=== PATIENT | male | born 1940 | race Caucasian/White ===

== ENCOUNTER 2018-08-29 18:27 | Emergency (ER) | payer MEDICARE, OTHER ==
[2018-08-29 22:10] LABS: ADD MAN DIFF? NO
[2018-08-29 22:13] LABS: WHITE BLOOD COUNT 12.3 10^3/ul (4.8-10.8)
[2018-08-29 22:13] LABS: ABNORMAL IP MESSAGE 1; BASOPHILS % 0.2 % (0.0-2.0); HEMATOCRIT 47.7 % (42.0-52.0); HEMOGLOBIN 15.8 g/dl (14.0-18.0); LYMPHOCYTES # 0.4 10^3/ul (0.8-2.9); LYMPHOCYTES % 3.3 % (15.0-51.0); MEAN CORPUSCULAR HEMOGLOBIN 31.6 pg (29.0-33.0); MEAN CORPUSCULAR HGB CONC 33.1 g/dl (32.0-37.0); MEAN CORPUSCULAR VOLUME 95.4 fl (82.0-101.0); MEAN PLATELET VOLUME 11.5 fl (7.4-10.4); MONOCYTE # 0.8 10^3/ul (0.3-0.9); MONOCYTES % 6.2 % (0.0-11.0); NEUTROPHILS % 89.9 % (39.0-77.0); PLATELET COUNT 163 10^3/UL (140-415); POSITIVE DIFF @See below; RED CELL DISTRIBUTION WIDTH 14.4 % (11.5-14.5)
[2018-08-29 22:23] LABS: ADD UMIC YES; UR ASCORBIC ACID NEGATIVE (NEGATIVE); UR BACTERIA FEW /HPF (NONE SEEN); UR BILIRUBIN (Dip) NEGATIVE (NEGATIVE); UR BLOOD (Dip) 3+ mg/dL (NEGATIVE); UR CLARITY CLEAR (CLEAR); UR COLOR RED (YELLOW); UR GLUCOSE (Dip) NEGATIVE (NEGATIVE); UR KETONES (Dip) NEGATIVE (NEGATIVE); UR LEUKOCYTE ESTERASE (Dip) NEGATIVE Leu/ul (NEGATIVE); UR NITRITE (Dip) NEGATIVE (NEGATIVE); UR RBC > 182 /HPF (0-5); UR SPECIFIC GRAVITY (Dip) 1.004 (1.003-1.030); UR TOTAL PROTEIN (Dip) 2+ mg/dl (NEGATIVE); UR UROBILINOGEN (Dip) NEGATIVE (NEGATIVE); UR WBC 50 /HPF (0-5)
[2018-08-29 22:32] LABS: INR 0.93; PROTIME 12.5 Sec (11.9-14.9)
[2018-08-29 22:33] LABS: PARTIAL THROMBOPLASTIN TIME 30.8 Sec (23.0-35.0)
[2018-08-29] MEDS: CEFTRIAXONE 1 GM/50 ML (PMX) 50 ML IVPB (22:38)
[2018-08-29 22:45] LABS: ALANINE AMINOTRANSFERASE 32 IU/L (13-69); ALBUMIN/GLOBULIN RATIO 1.66; ALKALINE PHOSPHATASE 67 IU/L (42-121); ANION GAP 11 (5-13); ASPARTATE AMINO TRANSFERASE 32 IU/L (15-46); BILIRUBIN,INDIRECT 0.7 mg/dl (0-1.1); BILIRUBIN,TOTAL 0.7 mg/dl (0.2-1.3); BLOOD UREA NITROGEN 19 mg/dl (7-20); CALCIUM 9.8 mg/dl (8.4-10.2); CARBON DIOXIDE 32 mmol/L (21-31); CHLORIDE 94 mmol/L (97-110); CREATININE 0.77 mg/dl (0.61-1.24); GLUCOSE 169 mg/dl (70-220); LIPASE 96 U/L (23-300); POTASSIUM 4.1 mmol/L (3.5-5.1); SODIUM 137 mmol/L (135-144)
== END 2018-08-30 00:02 | disposition home or self-care (01) ==
LOC: E/R 08-30 00:02
DX: N30.90 Cystitis, unspecified without hematuria (principal); N40.1 Benign prostatic hyperplasia with lower urinary tract symptoms; E11.9 Type 2 diabetes mellitus without complications; E03.9 Hypothyroidism, unspecified; R10.9 Unspecified abdominal pain; Z79.84 Long term (current) use of oral hypoglycemic drugs
CPT/HCPCS: 36415; 71045; 80053; 81001; 83690; 85025; 85610; 85730; 87086; 96374; 99284-25

== ENCOUNTER 2018-09-25 23:42 | Emergency (ER) | payer MEDICARE, OTHER ==
[2018-09-26 02:29] LABS: ADD UMIC YES; UR ASCORBIC ACID NEGATIVE (NEGATIVE); UR BACTERIA FEW /HPF (NONE SEEN); UR BILIRUBIN (Dip) NEGATIVE (NEGATIVE); UR BLOOD (Dip) 3+ mg/dL (NEGATIVE); UR CLARITY SLIGHTLY CLOUDY (CLEAR); UR COLOR AMBER (YELLOW); UR GLUCOSE (Dip) NEGATIVE (NEGATIVE); UR KETONES (Dip) NEGATIVE (NEGATIVE); UR LEUKOCYTE ESTERASE (Dip) 3+ Leu/ul (NEGATIVE); UR MUCUS FEW /HPF (NONE SEEN); UR NITRITE (Dip) NEGATIVE (NEGATIVE); UR RBC 21 /HPF (0-5); UR SPECIFIC GRAVITY (Dip) 1.003 (1.003-1.030); UR TOTAL PROTEIN (Dip) 1+ mg/dl (NEGATIVE); UR UROBILINOGEN (Dip) NEGATIVE (NEGATIVE); UR WBC 20 /HPF (0-5)
== END 2018-09-26 04:29 | disposition home or self-care (01) ==
LOC: E/R 23:42
DX: T85.9XXA Unspecified complication of internal prosthetic device, implant and graft, initial encounter (principal); E03.9 Hypothyroidism, unspecified; E11.9 Type 2 diabetes mellitus without complications; Y73.2 Prosthetic and other implants, materials and accessory gastroenterology and urology devices associated with adverse incidents; Z79.84 Long term (current) use of oral hypoglycemic drugs
CPT/HCPCS: 81001; 87086; 99283

== ENCOUNTER 2018-09-27 15:52 | Inpatient (IN) | payer MEDICARE, OTHER ==
[2018-09-27 16:07] LABS: ADD MAN DIFF? NO
[2018-09-27 16:10] LABS: BASOPHILS % 0.2 % (0.0-2.0); EOSINOPHILS % 0.1 % (0.0-7.0); HEMATOCRIT 32.1 % (42.0-52.0); HEMOGLOBIN 11.2 g/dl (14.0-18.0); LYMPHOCYTES # 0.8 10^3/ul (0.8-2.9); LYMPHOCYTES % 6.1 % (15.0-51.0); MEAN CORPUSCULAR HEMOGLOBIN 31.9 pg (29.0-33.0); MEAN CORPUSCULAR HGB CONC 34.9 g/dl (32.0-37.0); MEAN CORPUSCULAR VOLUME 91.5 fl (82.0-101.0); MEAN PLATELET VOLUME 11.5 fl (7.4-10.4); MONOCYTE # 1.3 10^3/ul (0.3-0.9); MONOCYTES % 10.7 % (0.0-11.0); NEUTROPHIL # 10.1 10^3/ul (1.6-7.5); NEUTROPHILS % 82.2 % (39.0-77.0); PLATELET COUNT 178 10^3/UL (140-415); RED BLOOD COUNT 3.51 10^6/ul (4.70-6.10); RED CELL DISTRIBUTION WIDTH 13.3 % (11.5-14.5)
[2018-09-27 16:10] LABS: WHITE BLOOD COUNT 12.3 10^3/ul (4.8-10.8)
[2018-09-27] MEDS: FUROSEMIDE 40 MG INJ IV (16:11)
[2018-09-27] MEDS: ASPIRIN 81 MG TAB PO (16:11)
[2018-09-27] MEDS: DILTIAZEM 25 MG INJ IV (16:11)
[2018-09-27 16:28] LABS: ALANINE AMINOTRANSFERASE 38 IU/L (13-69); ALBUMIN 3.7 g/dl (3.3-4.9); ALBUMIN/GLOBULIN RATIO 1.27; ALKALINE PHOSPHATASE 68 IU/L (42-121); ANION GAP 13 (5-13); ASPARTATE AMINO TRANSFERASE 51 IU/L (15-46); BILIRUBIN,INDIRECT 0.9 mg/dl (0-1.1); BILIRUBIN,TOTAL 0.9 mg/dl (0.2-1.3); BLOOD UREA NITROGEN 15 mg/dl (7-20); CALCIUM 8.3 mg/dl (8.4-10.2); CARBON DIOXIDE 25 mmol/L (21-31); CHLORIDE 83 mmol/L (97-110); CREATININE 0.75 mg/dl (0.61-1.24); GLUCOSE 137 mg/dl (70-220); LIPASE 46 U/L (23-300); POTASSIUM 4.2 mmol/L (3.5-5.1); SODIUM 121 mmol/L (135-144); TOTAL PROTEIN 6.6 g/dl (6.1-8.1)
[2018-09-27 16:39] LABS: TROPONIN-I 0.069 ng/ml (0.000-0.120)
[2018-09-27 16:52] LABS: ADD UMIC YES; UR ASCORBIC ACID NEGATIVE (NEGATIVE); UR BACTERIA FEW /HPF (NONE SEEN); UR BILIRUBIN (Dip) NEGATIVE (NEGATIVE); UR BLOOD (Dip) 3+ mg/dL (NEGATIVE); UR CLARITY CLEAR (CLEAR); UR COLOR STRAW (YELLOW); UR GLUCOSE (Dip) NEGATIVE (NEGATIVE); UR KETONES (Dip) NEGATIVE (NEGATIVE); UR LEUKOCYTE ESTERASE (Dip) 1+ Leu/ul (NEGATIVE); UR NITRITE (Dip) NEGATIVE (NEGATIVE); UR RBC 0 /HPF (0-5); UR SPECIFIC GRAVITY (Dip) 1.001 (1.003-1.030); UR TOTAL PROTEIN (Dip) NEGATIVE (NEGATIVE); UR UROBILINOGEN (Dip) NEGATIVE (NEGATIVE); UR WBC 1 /HPF (0-5)
[2018-09-27 17:35] LABS: B-TYPE NATRIURETIC PEPTIDE 5160 PG/ML (0-450)
[2018-09-27] MEDS ORDERED: HYDROCODONE/APAP (5/325) TAB PO (18:00)
[2018-09-27] MEDS ORDERED: LEVALBUTEROL (NEB) 1.25 MG/0.5 ML AMP HHN ×2 (18:00→20:00)
[2018-09-27] MEDS ORDERED: LABETALOL HCL 20MG INJ IV (18:00)
[2018-09-27] MEDS ORDERED: NACL 0.9% 3 ML SYG IV (18:00)
[2018-09-27] MEDS ORDERED: ACETAMINOPHEN 325 MG TAB PO (18:00)
[2018-09-27] MEDS ORDERED: IPRATROPIUM (NEB) 0.5 MG/2.5 ML AMP HHN (18:00)
[2018-09-27 18:32] LABS: POTASSIUM,URINE RANDOM < 9.7 mmol/L (25-125)
[2018-09-27 18:32] LABS: SODIUM,URINE RANDOM < 13 mmol/L (30-90)
[2018-09-27] MEDS ORDERED: DEXTROSE 50% 50 ML SYRINGE IV ×2 (19:00)
[2018-09-27] MEDS ORDERED: GLUCOSE GEL 15 GRAM TUBE BUCCAL (19:00)
[2018-09-27] MEDS ORDERED: GLUCOSE GEL 15 GRAM TUBE PO ×2 (19:00)
[2018-09-27] MEDS ORDERED: GLUCAGON 1 MG INJ IM (19:00)
[2018-09-27] MEDS: SOD CHLORIDE 0.9% 1,000 ML IV (19:05)
[2018-09-27] MEDS: CEFTRIAXONE 1 GM/50 ML (PMX) 50 ML IVPB (19:05)
[2018-09-27] MEDS ORDERED: DILTIAZEM 25 MG INJ IV (20:00)
[2018-09-27 20:07] LABS: OSMOLALITY,URINE 77 mOsm/kg (250-1200)
[2018-09-27 20:14] LABS: CARBON DIOXIDE 27 mmol/L (21-31); CHLORIDE 85 mmol/L (97-110); POTASSIUM 3.6 mmol/L (3.5-5.1); SODIUM 123 mmol/L (135-144)
[2018-09-27 20:14] LABS: LACTIC ACID 1.4 mmol/L (0.5-2.0)
[2018-09-27 20:15] LABS: ANION GAP 11 (5-13); BLOOD UREA NITROGEN 15 mg/dl (7-20); CALCIUM 8.4 mg/dl (8.4-10.2); CREATININE 0.73 mg/dl (0.61-1.24); GLUCOSE 114 mg/dl (70-220)
[2018-09-27] MEDS ORDERED: DOXAZOSIN 4 MG TAB PO (21:00)
[2018-09-27] MEDS: BUDESONIDE (NEB) 0.5MG/2ML AMP HHN (21:16)
[2018-09-27] MEDS: IPRATROPIUM (NEB) 0.5 MG/2.5 ML AMP HHN (21:16)
[2018-09-27] MEDS: ATORVASTATIN 80 MG TAB PO (21:55)
[2018-09-27] MEDS: PIPER-TAZO 3.375 GM IV (PMX) 100 ML IVPB (21:57)
[2018-09-27] MEDS: INSULIN ASPART [NOVOLOG] 3 ML PEN SC (22:17)
[2018-09-27] MEDS: DIGOXIN 500 MCG INJ IV (22:20)
[2018-09-27] MEDS: SOD CHLORIDE 0.9% 100 ML (23:16)
[2018-09-27] MEDS: IOHEXOL 300MG/ML 150 ML BTL (23:16)
[2018-09-28] MEDS ORDERED: PIPER-TAZO 3.375 GM IV (PMX) 100 ML IVPB
[2018-09-28 01:36] LABS: TROPONIN-I 0.072 ng/ml (0.000-0.120)
[2018-09-28] MEDS: ACCU-CHEK XX (01:37)
[2018-09-28] MEDS: PIPER-TAZO 3.375 GM IV (PMX) 100 ML IVPB ×4 (02:42→17:11)
[2018-09-28 05:16] LABS: ADD MAN DIFF? NO; EOSINOPHILS # 0.1 10^3/ul (0.0-0.5); HEMATOCRIT 29.5 % (42.0-52.0); HEMOGLOBIN 10.3 g/dl (14.0-18.0); LYMPHOCYTES # 0.7 10^3/ul (0.8-2.9); LYMPHOCYTES % 7.8 % (15.0-51.0); MEAN CORPUSCULAR HEMOGLOBIN 32.1 pg (29.0-33.0); MEAN CORPUSCULAR HGB CONC 34.9 g/dl (32.0-37.0); MEAN CORPUSCULAR VOLUME 91.9 fl (82.0-101.0); MEAN PLATELET VOLUME 11.4 fl (7.4-10.4); MONOCYTE # 1.1 10^3/ul (0.3-0.9); MONOCYTES % 11.7 % (0.0-11.0); NEUTROPHIL # 7.1 10^3/ul (1.6-7.5); NEUTROPHILS % 78.8 % (39.0-77.0); PLATELET COUNT 185 10^3/UL (140-415); RED BLOOD COUNT 3.21 10^6/ul (4.70-6.10); RED CELL DISTRIBUTION WIDTH 13.7 % (11.5-14.5)
[2018-09-28 05:25] LABS: HEMOGLOBIN A1C 5.9 % (0-5.9)
[2018-09-28 05:49] LABS: ALANINE AMINOTRANSFERASE 42 IU/L (13-69); ALBUMIN 3.1 g/dl (3.3-4.9); ALBUMIN/GLOBULIN RATIO 1.29; ALKALINE PHOSPHATASE 57 IU/L (42-121); ANION GAP 9 (5-13); ASPARTATE AMINO TRANSFERASE 40 IU/L (15-46); BILIRUBIN,INDIRECT 0.7 mg/dl (0-1.1); BILIRUBIN,TOTAL 0.7 mg/dl (0.2-1.3); BLOOD UREA NITROGEN 14 mg/dl (7-20); CALCIUM 8.1 mg/dl (8.4-10.2); CARBON DIOXIDE 31 mmol/L (21-31); CHLORIDE 89 mmol/L (97-110); CREATININE 0.84 mg/dl (0.61-1.24); GLUCOSE 95 mg/dl (70-220); MAGNESIUM 1.8 mg/dl (1.7-2.5); POTASSIUM 3.7 mmol/L (3.5-5.1); SODIUM 129 mmol/L (135-144); TOTAL PROTEIN 5.5 g/dl (6.1-8.1)
[2018-09-28] MEDS: LEVOTHYROXINE 112 MCG TAB PO (06:17)
[2018-09-28 06:27] LABS: CHOLESTEROL 103 mg/dl (100-200)
[2018-09-28 06:27] LABS: CHOL/HDL RATIO 3.9 RATIO; HDL CHOLESTEROL 26 mg/dl (31-75); LDL CHOLESTEROL,CALCULATED 53 mg/dl; TRIGLYCERIDES 121 mg/dl (0-149)
[2018-09-28] MEDS: INSULIN ASPART [NOVOLOG] 3 ML PEN SC ×5 (08:00→20:54)
[2018-09-28] MEDS: DILTIAZEM (CD) 120 MG CAP PO (08:09)
[2018-09-28] MEDS: ASPIRIN 81 MG TAB PO (08:10)
[2018-09-28] MEDS ORDERED: LOSARTAN 50 MG TAB PO (09:00)
[2018-09-28] MEDS: IPRATROPIUM (NEB) 0.5 MG/2.5 ML AMP HHN ×3 (09:24→20:44)
[2018-09-28] MEDS: LEVALBUTEROL (NEB) 1.25 MG/0.5 ML AMP HHN ×3 (09:24→20:43)
[2018-09-28] MEDS: BUDESONIDE (NEB) 0.5MG/2ML AMP HHN ×2 (10:16→20:44)
[2018-09-28 11:27] LABS: ANION GAP 9 (5-13); BLOOD UREA NITROGEN 14 mg/dl (7-20); CALCIUM 8.5 mg/dl (8.4-10.2); CARBON DIOXIDE 31 mmol/L (21-31); CHLORIDE 94 mmol/L (97-110); CREATININE 0.77 mg/dl (0.61-1.24); GLUCOSE 106 mg/dl (70-220); POTASSIUM 3.6 mmol/L (3.5-5.1); SODIUM 134 mmol/L (135-144)
[2018-09-28 11:41] LABS: TROPONIN-I 0.051 ng/ml (0.000-0.120)
[2018-09-28] MEDS: DIGOXIN 500 MCG INJ IV ×2 (15:39→20:54)
[2018-09-28] MEDS: ATORVASTATIN 80 MG TAB PO (20:54)
[2018-09-29] MEDS: PIPER-TAZO 3.375 GM IV (PMX) 100 ML IVPB ×2 (00:30→05:46)
[2018-09-29] MEDS: ACCU-CHEK XX (02:00)
[2018-09-29 06:25] LABS: ADD MAN DIFF? NO
[2018-09-29 06:32] LABS: WHITE BLOOD COUNT 11.2 10^3/ul (4.8-10.8)
[2018-09-29 06:33] LABS: BASOPHILS % 0.2 % (0.0-2.0); EOSINOPHILS # 0.1 10^3/ul (0.0-0.5); EOSINOPHILS % 0.7 % (0.0-7.0); HEMATOCRIT 32.8 % (42.0-52.0); HEMOGLOBIN 10.8 g/dl (14.0-18.0); LYMPHOCYTES # 0.9 10^3/ul (0.8-2.9); LYMPHOCYTES % 8.4 % (15.0-51.0); MEAN CORPUSCULAR HEMOGLOBIN 31.3 pg (29.0-33.0); MEAN CORPUSCULAR HGB CONC 32.9 g/dl (32.0-37.0); MEAN CORPUSCULAR VOLUME 95.1 fl (82.0-101.0); MONOCYTE # 1.1 10^3/ul (0.3-0.9); MONOCYTES % 10.1 % (0.0-11.0); NEUTROPHIL # 8.9 10^3/ul (1.6-7.5); NEUTROPHILS % 79.8 % (39.0-77.0); PLATELET COUNT 221 10^3/UL (140-415); RED BLOOD COUNT 3.45 10^6/ul (4.70-6.10); RED CELL DISTRIBUTION WIDTH 14.4 % (11.5-14.5)
[2018-09-29 07:01] LABS: ANION GAP 7 (5-13); BLOOD UREA NITROGEN 12 mg/dl (7-20); CALCIUM 8.6 mg/dl (8.4-10.2); CARBON DIOXIDE 34 mmol/L (21-31); CHLORIDE 95 mmol/L (97-110); CREATININE 0.75 mg/dl (0.61-1.24); GLUCOSE 134 mg/dl (70-220); PHOSPHORUS 3.2 mg/dl (2.5-4.9); POTASSIUM 3.7 mmol/L (3.5-5.1); SODIUM 136 mmol/L (135-144)
[2018-09-29] MEDS: LEVOTHYROXINE 112 MCG TAB PO (07:22)
[2018-09-29] MEDS: INSULIN ASPART [NOVOLOG] 3 ML PEN SC ×4 (07:57→20:03)
[2018-09-29] MEDS: IPRATROPIUM (NEB) 0.5 MG/2.5 ML AMP HHN ×3 (08:40→19:51)
[2018-09-29] MEDS: LEVALBUTEROL (NEB) 1.25 MG/0.5 ML AMP HHN ×3 (08:40→19:52)
[2018-09-29] MEDS: BUDESONIDE (NEB) 0.5MG/2ML AMP HHN ×2 (09:00→19:51)
[2018-09-29] MEDS: DILTIAZEM (CD) 120 MG CAP PO (09:23)
[2018-09-29] MEDS: ASPIRIN 81 MG TAB PO (09:23)
[2018-09-29] MEDS ORDERED: DIGOXIN 0.125 MG TAB PO (13:00)
[2018-09-29] MEDS: MEROPENEM 1 GM/50ML(PMX) 50 ML IVPB ×2 (13:35→20:53)
[2018-09-29] MEDS: ATORVASTATIN 80 MG TAB PO (20:03)
[2018-09-30] MEDS: ACCU-CHEK XX (02:00)
[2018-09-30] MEDS: MEROPENEM 1 GM/50ML(PMX) 50 ML IVPB ×3 (05:17→20:36)
[2018-09-30 06:03] LABS: ADD MAN DIFF? NO
[2018-09-30 06:12] LABS: WHITE BLOOD COUNT 10.3 10^3/ul (4.8-10.8)
[2018-09-30 06:12] LABS: BASOPHILS % 0.2 % (0.0-2.0); EOSINOPHILS # 0.1 10^3/ul (0.0-0.5); EOSINOPHILS % 1.2 % (0.0-7.0); HEMATOCRIT 32.5 % (42.0-52.0); HEMOGLOBIN 10.9 g/dl (14.0-18.0); LYMPHOCYTES # 0.9 10^3/ul (0.8-2.9); LYMPHOCYTES % 8.7 % (15.0-51.0); MEAN CORPUSCULAR HEMOGLOBIN 31.7 pg (29.0-33.0); MEAN CORPUSCULAR HGB CONC 33.5 g/dl (32.0-37.0); MEAN CORPUSCULAR VOLUME 94.5 fl (82.0-101.0); MEAN PLATELET VOLUME 11.2 fl (7.4-10.4); MONOCYTES % 9.8 % (0.0-11.0); NEUTROPHIL # 8.2 10^3/ul (1.6-7.5); NEUTROPHILS % 78.9 % (39.0-77.0); PLATELET COUNT 248 10^3/UL (140-415); RED BLOOD COUNT 3.44 10^6/ul (4.70-6.10); RED CELL DISTRIBUTION WIDTH 14.5 % (11.5-14.5)
[2018-09-30] MEDS: LEVOTHYROXINE 112 MCG TAB PO (06:25)
[2018-09-30 06:44] LABS: ANION GAP 7 (5-13); BLOOD UREA NITROGEN 9 mg/dl (7-20); CALCIUM 8.6 mg/dl (8.4-10.2); CARBON DIOXIDE 30 mmol/L (21-31); CHLORIDE 96 mmol/L (97-110); CREATININE 0.55 mg/dl (0.61-1.24); GLUCOSE 117 mg/dl (70-220); MAGNESIUM 1.8 mg/dl (1.7-2.5); PHOSPHORUS 2.6 mg/dl (2.5-4.9); SODIUM 133 mmol/L (135-144)
[2018-09-30] MEDS: INSULIN ASPART [NOVOLOG] 3 ML PEN SC ×4 (07:35→20:36)
[2018-09-30] MEDS: ASPIRIN 81 MG TAB PO (08:50)
[2018-09-30] MEDS: DILTIAZEM (CD) 120 MG CAP PO (08:50)
[2018-09-30] MEDS: BUDESONIDE (NEB) 0.5MG/2ML AMP HHN ×2 (09:07→20:33)
[2018-09-30] MEDS: IPRATROPIUM (NEB) 0.5 MG/2.5 ML AMP HHN ×3 (09:07→20:33)
[2018-09-30] MEDS: LEVALBUTEROL (NEB) 1.25 MG/0.5 ML AMP HHN ×3 (09:07→20:34)
[2018-09-30] MEDS: ATORVASTATIN 80 MG TAB PO (20:29)
[2018-10-01] MEDS: ACCU-CHEK XX (01:12)
[2018-10-01] MEDS: MEROPENEM 1 GM/50ML(PMX) 50 ML IVPB ×2 (05:27→14:56)
[2018-10-01] MEDS: INSULIN ASPART [NOVOLOG] 3 ML PEN SC ×2 (08:09→11:52)
[2018-10-01] MEDS: ASPIRIN 81 MG TAB PO (08:15)
[2018-10-01] MEDS: IPRATROPIUM (NEB) 0.5 MG/2.5 ML AMP HHN ×2 (09:00→14:11)
[2018-10-01] MEDS: LEVALBUTEROL (NEB) 1.25 MG/0.5 ML AMP HHN ×2 (09:00→14:11)
[2018-10-01] MEDS: BUDESONIDE (NEB) 0.5MG/2ML AMP HHN (09:01)
[2018-10-01] MEDS: LEVOTHYROXINE 112 MCG TAB PO (09:59)
[2018-10-01] MEDS: DILTIAZEM (CD) 120 MG CAP PO (10:00)
== END 2018-10-01 16:09 | disposition home or self-care (01) | DRG 308 ==
LOC: E/R 15:52 → 6WM 17:05
DX: I48.91 Unspecified atrial fibrillation (principal); I50.33 Acute on chronic diastolic (congestive) heart failure; N39.0 Urinary tract infection, site not specified; E87.1 Hypo-osmolality and hyponatremia; E66.9 Obesity, unspecified; E11.9 Type 2 diabetes mellitus without complications; E03.9 Hypothyroidism, unspecified; I25.10 Atherosclerotic heart disease of native coronary artery without angina pectoris; D64.9 Anemia, unspecified; B95.2 Enterococcus as the cause of diseases classified elsewhere; B96.20 Unspecified Escherichia coli [E. coli] as the cause of diseases classified elsewhere; Z16.12 Extended spectrum beta lactamase (ESBL) resistance; R33.9 Retention of urine, unspecified; Z98.890 Other specified postprocedural states; Z95.5 Presence of coronary angioplasty implant and graft; Z79.84 Long term (current) use of oral hypoglycemic drugs; Z79.82 Long term (current) use of aspirin
CPT/HCPCS: 36415; 71045; 74176; 74177; 80048; 80053; 80061; 81001; 82436; 82962; 83036; 83605; 83690; 83735; 83880; 83935; 84100; 84133; 84300; 84443; 84484; 85025; 87040; 87081; 87086; 93005; 93306; 94640; 94664; 96374; 96375; 99283; 99291-25